=== PATIENT | male | born 1955 | race Caucasian/White ===

== ENCOUNTER 2021-04-17 08:58 | Observation (INO) | payer MEDICARE, OTHER ==
[~2021-04-17] VITALS: Ht 167.6 cm; Wt 88.0 kg
[~2021-04-17 08:58] MED LIST: CYAN1TAB19 PO; METH29OI TP; OXYC1TAB15 PO; TRAZ-118 PO
--- NOTE | 2021-04-17 09:19 | ED.ADGEN ---
Past Medical History Past Medical History: GERD, Other Additional Past Medical Histor: NEUROPATHY Past Surgical History: No Surgical History Smoking Status: Former Smoker Alcohol Use: None Drug Use: None General Adult EDM: Chief Complaint: CHEST WALL PAIN HPI: HPI: Patient is a 65-year-old male who arrives ambulatory to the emergency department complaining of right-sided chest pain since yesterday evening. Patient sharp pain at the right chest wall which began yesterday evening. Patient states this pain is exacerbated by deep breathing. Patient reports in order to temporize the pain he takes shorter breaths. Despite this the patient denies any history of fever or shortness of air. Additionally he denies any history of trauma or substernal chest pain. Patient also reports to right-sided testicular swelling and pain. Patient states this has been ongoing intermittently for 6 months. Patient states when he is at rest he does not have pain. He does notice however that this started in his lower abdomen/pelvic area of the right side and has now migrated into his right testicle. He denies fever or trauma. He further denies any discharge or changes in his bowel/bladder habits. He is awake, alert and nontoxic-appearing. Review of Systems: Review of Systems: Constitutional: Denies fever or chills. [] Eyes: Denies change in visual acuity. [] HENT: Denies nasal congestion or sore throat. [] Respiratory: Reports chest wall pain. Denies cough or shortness of breath. [] Cardiovascular: Denies chest pain or edema. [] GI: Denies abdominal pain, nausea, vomiting, bloody stools or diarrhea. [] : Reports right-sided testicular swelling and pain. Denies dysuria. [] Musculoskeletal: Denies back pain or joint pain. [] Integument: Denies rash. [] Neurologic: Denies headache, focal weakness or sensory changes. [] Endocrine: Denies polyuria or polydipsia. [] Lymphatic: Denies swollen glands. [] Psychiatric: Denies depression or anxiety. [] Allergies: Allergies: Allergies Coded Allergies Type Severity Reaction Last Updated Verified No Known Drug Allergies 01/02/16 No Physical Exam: PE: Constitutional: Well developed, well nourished, no acute distress, non-toxic appearance. [] HENT: Normocephalic, atraumatic, bilateral external ears normal, oropharynx moist, no oral exudates, nose normal. [] Eyes: PERRLA, EOMI, conjunctiva normal, no discharge. [] Neck: Normal range of motion, no tenderness, supple, no stridor. [] Cardiovascular:Heart rate regular rhythm, no murmur [] Lungs & Thorax: Bilateral breath sounds clear to auscultation [] Abdomen: Bowel sounds normal, soft, no tenderness, no masses, no pulsatile masses. [] : Patient has mild erythema of the right testicle as well as fullness. There is no tenderness to palpation. There is no penile discharge or lesion otherwise. Skin: Warm, dry, no erythema, no rash. [] Back: No tenderness, no CVA tenderness. [] Extremities: No tenderness, no cyanosis, no clubbing, ROM intact, no edema. [] Neurologic: Alert and oriented X 3, normal motor function, normal sensory function, no focal deficits noted. [] Psychologic: Affect normal, judgement normal, mood normal. [] Current Patient Data: Labs: Laboratory Tests Test 04/17/21 09:17 White Blood Count 6.8 x10^3/uL (4.0-11.0) Red Blood Count 4.88 x10^6/uL (4.30-5.70) Hemoglobin 15.3 g/dL (13.0-17.5) Hematocrit 45.5 % (39.0-53.0) Mean Corpuscular Volume 93 fL (79-100) Mean Corpuscular Hemoglobin 31 pg (25-35) Mean Corpuscular Hemoglobin Concent 34 g/dL (31-37) Red Cell Distribution Width 15.1 % (11.5-14.5) H Platelet Count 197 x10^3/uL (140-400) Neutrophils (%) (Auto) 71 % (31-73) Lymphocytes (%) (Auto) 21 % (24-48) L Monocytes (%) (Auto) 5 % (0-9) Eosinophils (%) (Auto) 3 % (0-3) Basophils (%) (Auto) 1 % (0-3) Neutrophils # (Auto) 4.8 x10^3/uL (1.8-7.7) Lymphocytes # (Auto) 1.4 x10^3/uL (1.0-4.8) Monocytes # (Auto) 0.3 x10^3/uL (0.0-1.1) Eosinophils # (Auto) 0.2 x10^3/uL (0.0-0.7) Basophils # (Auto) 0.1 x10^3/uL (0.0-0.2) Sodium Level 142 mmol/L (136-145) Potassium Level 4.2 mmol/L (3.5-5.1) Chloride Level 107 mmol/L (98-107) Carbon Dioxide Level 26 mmol/L (21-32) Anion Gap 9 (6-14) Blood Urea Nitrogen 17 mg/dL (8-26) Creatinine 1.3 mg/dL (0.7-1.3) Estimated GFR (Cockcroft-Gault) 55.2 BUN/Creatinine Ratio 13 (6-20) Glucose Level 96 mg/dL (70-99) Calcium Level 8.7 mg/dL (8.5-10.1) Total Bilirubin 0.5 mg/dL (0.2-1.0) Aspartate Amino Transferase (AST) 18 U/L (15-37) Alanine Aminotransferase (ALT) 31 U/L (16-63) Alkaline Phosphatase 61 U/L (46-116) Troponin I Quantitative < 0.017 ng/mL (0.000-0.055) EI-Txn-E-Type Natriuretic Peptide 71 pg/mL (0-124) Total Protein 7.9 g/dL (6.4-8.2) Albumin 3.9 g/dL (3.4-5.0) Albumin/Globulin Ratio 1.0 (1.0-1.7) Laboratory Tests 04/17/21 09:17 Laboratory Tests 04/17/21 09:17 Vital Signs: Vital Signs Date Time Temp Pulse Resp B/P (MAP) Pulse Ox O2 Delivery O2 Flow Rate FiO2 04/17/21 09:00 98.0 93 20 167/107 (127) 97 Room Air 98.0 EKG: EKG: [] EKG was obtained at 9:04 AM and revealed a normal sinus rhythm with a ventricular rate of 88 bpm. There are no acute ST/T wave changes to denote ischemia. This is an otherwise normal EKG. Heart Score: C/O Chest Pain: Yes HEART Score for Chest Pain: HEART Score for Chest Pain Response (Comments) Value History Slighlty/Non-Suspicious 0 ECG Normal 0 Age > 65 2 Risk Factors 1 or 2 Risk Factors 1 Troponin < Normal Limit 0 Total 3 Risk Factors: Risk Factors: DM, Current or recent (<one month) smoker, HTN, HLP, family history of CAD, obesity. Risk Scores: Score 0 - 3: 2.5% MACE over next 6 weeks - Discharge Home Score 4 - 6: 20.3% MACE over next 6 weeks - Admit for Clinical Observation Score 7 - 10: 72.7% MACE over next 6 weeks - Early Invasive Strategies Radiology/Procedures: Radiology/Procedures: [] Impression: [facility] [id number] [place] [address] IMAGING REPORT Signed PATIENT: CARLA SANTOS ACCOUNT: [id number] : 1955 LOCATION: ER AGE: 65 SEX: M EXAM STATUS: REG ER ORD. PHYSICIAN: SHAWN FRAGA DO REASON: PAIN PROCEDURE: PORTABLE CHEST 1V XR CHEST 1V 04/17/2021 9:15 AM INDICATION: Pain COMPARISON: 01/02/2016 TECHNIQUE: Portable frontal view of the chest is provided. FINDINGS: The cardiomediastinal silhouette is within normal limits. There is elevation left hemidiaphragm. Bandlike density at the left lung base may represent atelectasis versus developing infiltrate. Calcified granuloma identified in the right midlung. There are no significant pleural effusions. There is no pulmonary vascular congestion. No pneumothorax. No suspicious osseous abnormality. IMPRESSION: There is new elevation left hemidiaphragm. There is bandlike density at the left lung base may represent atelectasis versus infiltrate. Electronically signed by: Colt Lawler MD (04/17/2021 9:36 AM) [id number] DICTATED and SIGNED BY: COLT LAWLER MD DATE: 04/17/21 [id number] [facility] [address] [place] [address] IMAGING REPORT Signed PATIENT: CARLA SANTOS ACCOUNT: [id number] : 1955 LOCATION: ER AGE: 65 SEX: M EXAM STATUS: REG ER ORD. PHYSICIAN: SHAWN FRAGA DO REASON: RIGHT SIDED SWELLING/PAIN PROCEDURE: TESTICULAR/SCROTUM INDICATION: Reason: RIGHT SIDED SWELLING/PAIN / Spl. Instructions: / History: COMPARISON: CT from February 2016 TECHNIQUE: Grayscale, color and spectral doppler ultrasound images obtained of the scrotum. FINDINGS: Right Testicle: 40 x 30 x 24 mm. Vascular flow is identified. Left Testicle: 40 x 23 x 27 mm. Vascular flow is identified. Moderate right-sided hydrocele. Small amount of debris within. Loop of bowel is seen within the right groin abutting the hydrocele IMPRESSION: * Loop of bowel seen extending superior to the right side of the scrotum which could be secondary to hernia containing bowel. * Moderate right-sided hydrocele with some debris within. Electronically signed by: Marleny Masterson MD (04/17/2021 10:31 AM) [id number] DICTATED and SIGNED BY: MARLENY MASTERSON MD DATE: 04/17/21 [id number] Course & Med Decision Making: Course & Med Decision Making Pertinent Labs and Imaging studies reviewed. (See chart for details) [] Dragon Disclaimer: Dragon Disclaimer: This electronic medical record was generated, in whole or in part, using a voice recognition dictation system. Departure Departure Impression: Primary Impression: Inguinal hernia of right side without obstruction or gangrene Additional Impression: Right-sided chest wall pain Disposition: ADMITTED INPATIENT Admitting Physician: HIMS Condition: STABLE Referrals: NO PCP (PCP) Problem Qualifiers SHAWN FRAGA DO Apr 17, 2021 09:19
--- NOTE | 2021-04-17 09:39 | RAD ---
XR CHEST 1V 04/17/2021 9:15 AM INDICATION: Pain COMPARISON: 01/02/2016 TECHNIQUE: Portable frontal view of the chest is provided. FINDINGS: The cardiomediastinal silhouette is within normal limits. There is elevation left hemidiaphragm. Band like density at the left lung base may represent atelectasis versus developing infiltrate. Calcified granuloma identified in the right midlung. There are no significant pleural effusions. There is no pulmonary vascular congestion. No pneumothora x. No suspicious osseous abnormality. IMPRESSION: There is new elevation left hemidiaphragm. There is bandlike density at the left lung base may repres ent atelectasis versus infiltrate. Electronically signed by: Andree Tang MD (04/17/2021 9:36 AM) [id number]
[2021-04-17 09:41] LABS: BASO # 0.1 x10^3/uL (0.0-0.2); BASO % 1 % (0-3); EOS # 0.2 x10^3/uL (0.0-0.7); EOS % 3 % (0-3); HEMATOCRIT 45.5 % (39.0-53.0); HEMOGLOBIN 15.3 g/dL (13.0-17.5); LYMPH # 1.4 x10^3/uL (1.0-4.8); LYMPH % 21 % (24-48); MEAN CORPUSCULAR HEMOGLOBIN 31 pg (25-35); MEAN CORPUSCULAR HGB CONC 34 g/dL (31-37); MEAN CORPUSCULAR VOLUME 93 fL (79-100); MONO # 0.3 x10^3/uL (0.0-1.1); MONO % 5 % (0-9); NEUT # 4.8 x10^3/uL (1.8-7.7); NEUT % 71 % (31-73); PLATELET COUNT 197 x10^3/uL (140-400); RED BLOOD COUNT 4.88 x10^6/uL (4.30-5.70); RED CELL DISTRIBUTION WIDTH 15.1 % (11.5-14.5); WHITE BLOOD COUNT 6.8 x10^3/uL (4.0-11.0)
[2021-04-17 10:02] LABS: CALCIUM 8.7 mg/dL (8.5-10.1); CREATININE 1.3 mg/dL (0.7-1.3); GFR 55.2; POTASSIUM 4.2 mmol/L (3.5-5.1)
[2021-04-17 10:08] LABS: ALBUMIN 3.9 g/dL (3.4-5.0); TOTAL BILIRUBIN 0.5 mg/dL (0.2-1.0); TOTAL PROTEIN 7.9 g/dL (6.4-8.2)
--- NOTE | 2021-04-17 10:33 | RAD ---
INDICATION: Reason: RIGHT SIDED SWELLING/PAIN / Spl. Instructions: / History: COMPARISON: CT from February 2016 TECHNIQUE: Grayscale, color and spectral doppler ultrasound images obtained of the scrotum. FINDINGS: Right Testicle: 40 x 30 x 24 mm. Vascular flow is identified. Left Testicle: 40 x 23 x 27 mm. Vascular flow is identified. Moderate right-sided hydrocele. Small amount of debris within. Loop of bowel is seen within the right groin abutting the hydrocele IMPRESSION: * Loop of bowel seen extending superior to the right side of the scrotum which could be secondary to hernia containing bowel. * Moderate right-sided hydrocele with some debris within. Electronically signed by: Oneal Andrews MD (04/17/2021 10:31 AM) [id number]
--- NOTE | 2021-04-17 10:53 | PDOC1 ---
History and Physical Date of Admission Date of Admission DATE: 04/17/21 TIME: 10:52 History of Present Illness History of Present Illness 65-year-old male who arrived ambulatory to the emergency department complaining of right-sided chest pain since 04-16 evening. Patient sharp pain at the right chest wall which is reproducable Patient states this pain is exacerbated by deep breathing. denies any history of fever or shortness of air. he quit smoking 6 yrs ago he denies any history of trauma or substernal chest pain. Patient also reports to right-sided testicular swelling and pain. Patient states this has been ongoing intermittently for 6 months. Patient states when he is at rest he does not have pain. He does notice however that this started in his lower abdomen/pelvic area of the right side and has now migrated into his right testicle./ scrotum on US //Loop of bowel seen extending superior to the right side of the scrotum containing bowel.Moderate right-sided hydrocele with some debris within. Past Medical History Past Medical History Past Medical History Past Medical History: GERD, Other Additional Past Medical Histor: NEUROPATHY Past Surgical History: No Surgical History Smoking Status: Former Smoker Alcohol Use: None Drug Use: None FAMILY HISTORY Family History noncontributory to CV SOCIAL HISTORY Smoke: No ALCOHOL: occassional Drugs: Other (hx of marijuana an cocaine use) Lives: with Family (spouse) Psych: Addictions Musculoskeletal: Osteoarthritis Rheumatologic: Fibromyalgia Family History Family History: High Cholestrol, Obesity Social History Smoke: Quit ALCOHOL: occassional Drugs: Cocaine, Marijuana Current Problem List Problem List Problems Medical Problems: (1) Inguinal hernia of right side without obstruction or gangrene Status: Acute (2) Right-sided chest wall pain Status: Acute Current Medications Current Medications Active Scripts Active Percocet 5-325 Mg Tablet (Oxycodone/Acetaminophen) 1 Each Tablet 1 Tab PO QID PRN Trazodone Hcl 50 Mg Tablet 50 Mg PO PRN QHS PRN Analgesic [place] (Methyl Salicylate/Menthol) 29 Gm Oint...g. 1 Marco Antonio TP QID Folbic Tablet (Cyanocobalamin/Fa/Pyridoxine) 1 Each Tablet 1 Tab PO DAILY Reported No Known Medications Prior To Admisstion (Info) Each 1 Each MC Allergies Allergies: Coded Allergies: No Known Drug Allergies (Unverified , 2/17/16) ROS General: No: Chills, Night Sweats, Fatigue, Malaise, Appetite, Other PSYCHOLOGICAL ROS: YES: Anxiety, Depression; No: Behavioral Disorder, Concentration difficultie, Decreased libido, Disorientation, Hallucinations, Hostility, Irritablity, Memory difficulties, Mood Swings, Obsessive thoughts, Physical abuse, Sexual abuse, Sleep disturbances, Suicidal ideation, Other Eyes: No Blurry vision, No Decreased vision, No Double vision, No Dry eyes, No Excessive tearing, No Eye Pain, No Itchy Eyes, No Loss of vision, No Photophobia, No Scotomata, No Uses contacts, No Uses glasses, No Other HEENT: YES: Heacaches; No: Visual Changes, Hearing change, Nasal congestion, Nasal discharge, Oral lesions, Sinus pain, Sore Throat, Epistaxis, Sneezing, Snoring, Tinnitus, Vertigo, Vocal changes, Other ALLERGY AND IMMUNOLOGY: No: Hives, Insect Bite Sensitivity, Itchy/Watery Eyes, Nasal Congestion, Post Nasal Drip, Seasonal Allergies, Other Hematological and Lymphatic: No: Bleeding Problems, Blood Clots, Blood Transfusions, Brusing, Night Sweats, Pallor, Swollen Lymph Nodes, Other ENDOCRINE: No: Breast Changes, Galactorrhea, Hair Pattern Changes, Hot Flashes, Malaise/lethargy, Mood Swings, Palpitations, Polydipsia/polyuria, Skin Changes, Temperature Intolerance, Unexpected Weight Changes, Other Breast: No New/Changing Breast Lumps, No Nipple changes, No Nipple discharge, No Other Respiratory: No: Cough, Hemoptysis, Orthopnea, Pleuritic Pain, Shortness of breath, SOB with excertion, Sputum Changes, Stridor, Tachypnea, Wheezing, Other Cardiovascular: yes Chest Pain; No Palpitations, No Orthopnea, No Paroxysmal Noc. Dyspnea, No Edema, No Lt Headedness, No Other Gastrointestinal: Yes Abdominal Pain; No Nausea, No Vomiting, No Diarrhea, No Constipation, No Melena, No Hematochezia, No Other Genitourinary: No Dysuria, No Frequency, No Incontinence, No Hematuria, No Retention, No Discharge, No Urgency, No Pain, No Flank Pain, No Other, No , No , No , No , No , No , No Musculoskeletal: No Gait Disturbance, No Joint Pain, No Joint Stiffness, No Joint Swelling, No Muscle Pain, No Muscular Weakness, No Pain In:, No Swelling In:, No Other Neurological: No Behavorial Changes, No Bowel/Bladder ControlChng, No Confusion, No Dizziness, No Gait Disturbance, No Headaches, No Impaired Coord/balance, No Memory Loss, No Numbness/Tingling, No Seizures, No Speech Problems, No Tremors, No Visual Changes, No Weakness, No Other Skin: No Dry Skin, No Eczema, No Hair Changes, No Lumps, No Mole Changes, No Mottling, No Nail Changes, No Pruritus, No Rash, No Skin Lesion Changes, No Other, No Acne Physical Exam General: Alert, Oriented X3, Cooperative, No acute distress HEENT: PERRLA, EOMI, Mucous membr. moist/pink Lungs: Clear to auscultation, Normal air movement Heart: S1S2, RRR, no gallops, no murmurs Abdomen: Normal bowel sounds, No tenderness PELVIC: Examination not indicated Extremities: No cyanosis Neuro: Normal speech, Strength at 5/5 X4 ext, Cranial nerves 3-12 NL Psych/Mental Status: Mental status NL, Mood NL Vitals Vitals Vital Signs Date Time Temp Pulse Resp B/P (MAP) Pulse Ox O2 Delivery O2 Flow Rate FiO2 04/17/21 09:00 98.0 93 20 167/107 (127) 97 Room Air 98.0 Labs Labs Laboratory Tests Test 04/17/21 09:17 White Blood Count 6.8 x10^3/uL (4.0-11.0) Red Blood Count 4.88 x10^6/uL (4.30-5.70) Hemoglobin 15.3 g/dL (13.0-17.5) Hematocrit 45.5 % (39.0-53.0) Mean Corpuscular Volume 93 fL (79-100) Mean Corpuscular Hemoglobin 31 pg (25-35) Mean Corpuscular Hemoglobin Concent 34 g/dL (31-37) Red Cell Distribution Width 15.1 % (11.5-14.5) Platelet Count 197 x10^3/uL (140-400) Neutrophils (%) (Auto) 71 % (31-73) Lymphocytes (%) (Auto) 21 % (24-48) Monocytes (%) (Auto) 5 % (0-9) Eosinophils (%) (Auto) 3 % (0-3) Basophils (%) (Auto) 1 % (0-3) Neutrophils # (Auto) 4.8 x10^3/uL (1.8-7.7) Lymphocytes # (Auto) 1.4 x10^3/uL (1.0-4.8) Monocytes # (Auto) 0.3 x10^3/uL (0.0-1.1) Eosinophils # (Auto) 0.2 x10^3/uL (0.0-0.7) Basophils # (Auto) 0.1 x10^3/uL (0.0-0.2) Sodium Level 142 mmol/L (136-145) Potassium Level 4.2 mmol/L (3.5-5.1) Chloride Level 107 mmol/L (98-107) Carbon Dioxide Level 26 mmol/L (21-32) Anion Gap 9 (6-14) Blood Urea Nitrogen 17 mg/dL (8-26) Creatinine 1.3 mg/dL (0.7-1.3) Estimated GFR (Cockcroft-Gault) 55.2 BUN/Creatinine Ratio 13 (6-20) Glucose Level 96 mg/dL (70-99) Calcium Level 8.7 mg/dL (8.5-10.1) Total Bilirubin 0.5 mg/dL (0.2-1.0) Aspartate Amino Transf (AST/SGOT) 18 U/L (15-37) Alanine Aminotransferase (ALT/SGPT) 31 U/L (16-63) Alkaline Phosphatase 61 U/L (46-116) Troponin I Quantitative < 0.017 ng/mL (0.000-0.055) QQ-Jor-U-Type Natriuretic Peptide 71 pg/mL (0-124) Total Protein 7.9 g/dL (6.4-8.2) Albumin 3.9 g/dL (3.4-5.0) Albumin/Globulin Ratio 1.0 (1.0-1.7) Laboratory Tests Test 04/17/21 09:17 White Blood Count 6.8 x10^3/uL (4.0-11.0) Red Blood Count 4.88 x10^6/uL (4.30-5.70) Hemoglobin 15.3 g/dL (13.0-17.5) Hematocrit 45.5 % (39.0-53.0) Mean Corpuscular Volume 93 fL (79-100) Mean Corpuscular Hemoglobin 31 pg (25-35) Mean Corpuscular Hemoglobin Concent 34 g/dL (31-37) Red Cell Distribution Width 15.1 % (11.5-14.5) Platelet Count 197 x10^3/uL (140-400) Neutrophils (%) (Auto) 71 % (31-73) Lymphocytes (%) (Auto) 21 % (24-48) Monocytes (%) (Auto) 5 % (0-9) Eosinophils (%) (Auto) 3 % (0-3) Basophils (%) (Auto) 1 % (0-3) Neutrophils # (Auto) 4.8 x10^3/uL (1.8-7.7) Lymphocytes # (Auto) 1.4 x10^3/uL (1.0-4.8) Monocytes # (Auto) 0.3 x10^3/uL (0.0-1.1) Eosinophils # (Auto) 0.2 x10^3/uL (0.0-0.7) Basophils # (Auto) 0.1 x10^3/uL (0.0-0.2) Sodium Level 142 mmol/L (136-145) Potassium Level 4.2 mmol/L (3.5-5.1) Chloride Level 107 mmol/L (98-107) Carbon Dioxide Level 26 mmol/L (21-32) Anion Gap 9 (6-14) Blood Urea Nitrogen 17 mg/dL (8-26) Creatinine 1.3 mg/dL (0.7-1.3) Estimated GFR (Cockcroft-Gault) 55.2 BUN/Creatinine Ratio 13 (6-20) Glucose Level 96 mg/dL (70-99) Calcium Level 8.7 mg/dL (8.5-10.1) Total Bilirubin 0.5 mg/dL (0.2-1.0) Aspartate Amino Transf (AST/SGOT) 18 U/L (15-37) Alanine Aminotransferase (ALT/SGPT) 31 U/L (16-63) Alkaline Phosphatase 61 U/L (46-116) Troponin I Quantitative < 0.017 ng/mL (0.000-0.055) GT-Jue-D-Type Natriuretic Peptide 71 pg/mL (0-124) Total Protein 7.9 g/dL (6.4-8.2) Albumin 3.9 g/dL (3.4-5.0) Albumin/Globulin Ratio 1.0 (1.0-1.7) Images Images XR CHEST 1V 04/17/2021 9:15 AM INDICATION: Pain COMPARISON: 01/02/2016 TECHNIQUE: Portable frontal view of the chest is provided. FINDINGS: The cardiomediastinal silhouette is within normal limits. There is elevation left hemidiaphragm. Bandlike density at the left lung base may represent atelectasis versus developing infiltrate. Calcified granuloma identified in the right midlung. There are no significant pleural effusions. There is no pulmonary vascular congestion. No pneumothorax. No suspicious osseous abnormality. IMPRESSION: There is new elevation left hemidiaphragm. There is bandlike density at the left lung base may represent atelectasis versus infiltrate. Electronically signed by: Colt Lawler MD (04/17/2021 9:36 AM) [id number] DICTATED and SIGNED BY: COLT LAWLER MD DATE: 04/17/21 [id number] PATIENT: CARLA SANTOS ACCOUNT: [id number] : 1955 LOCATION: ER AGE: 65 SEX: M EXAM STATUS: REG ER ORD. PHYSICIAN: SHAWN FRAAG DO REASON: RIGHT SIDED SWELLING/PAIN PROCEDURE: TESTICULAR/SCROTUM INDICATION: Reason: RIGHT SIDED SWELLING/PAIN / Spl. Instructions: / History: COMPARISON: CT from February 2016 TECHNIQUE: Grayscale, color and spectral doppler ultrasound images obtained of the scrotum. FINDINGS: Right Testicle: 40 x 30 x 24 mm. Vascular flow is identified. Left Testicle: 40 x 23 x 27 mm. Vascular flow is identified. Moderate right-sided hydrocele. Small amount of debris within. Loop of bowel is seen within the right groin abutting the hydrocele IMPRESSION: * Loop of bowel seen extending superior to the right side of the scrotum which could be secondary to hernia containing bowel. * Moderate right-sided hydrocele with some debris within. Electronically signed by: Marleny Masterson MD (04/17/2021 10:31 AM) [id number] DICTATED and SIGNED BY: MARLENY MASTERSON MD DATE: 04/17/21 [id number] 0 VTE Prophylaxis Ordered VTE Prophylaxis Devices: No VTE Pharmacological Prophylaxi: No Assessment/Plan Assessment/Plan IMPRESSION Atypical right chest wall pain inguinal hernia // Loop of bowel seen extending superior to the right side of the scrotum containing bowel. Moderate right-sided hydrocele with some debris within. morbid obesity hx polysubstance abuse, cocaine REMOTE tobacco abuse new elevation left hemidiaphragm. cxr bandlike density at the left lung base may represent atelectasis versus infiltrate. plan admit consult cardiology consult general surgery trend troponin i incentive spirometry dvt prophylaxis D/W ER DR Justifications for Admission Other Justification TRE AMADO MD Apr 17, 2021 10:53
[2021-04-17] MEDS ORDERED: MORPHINE SULFATE 2 MG/ML VIAL. IV PRN (11:00)
[2021-04-17] MEDS ORDERED: ONDANSETRON PF 4 MG/2 ML VIAL. IV PRN ×2 (11:00→15:30)
[2021-04-17 15:00] VITALS: BP 156/107
[2021-04-17] MEDS ORDERED: NAPR220C4 PO (15:19)
[2021-04-17] MEDS ORDERED: LORazepam 0.5 MG TABLET PO PRN (15:30)
[2021-04-17] MEDS ORDERED: ALBUTEROL SULFATE 2.5 MG/3 ML NEBU. NEB PRN (15:30)
[2021-04-17] MEDS ORDERED: SODIUM PHOSPHATES 19/7GM 133 ML ENEMA. PR PRN (15:30)
[2021-04-17] MEDS ORDERED: diphenhydrAMINE 50 MG/ML VIAL IVP PRN (15:30)
[2021-04-17] MEDS ORDERED: ACETAMINOPHEN 325 MG TABLET. PO PRN (15:30)
[2021-04-17] MEDS ORDERED: guaiFENesin ORAL 200 MG/10 ML LIQUID. PO PRN (15:30)
[2021-04-17] MEDS ORDERED: ZOLPIDEM 5 MG TABLET. PO PRN (15:30)
[2021-04-17] MEDS ORDERED: cloNIDine HCL 0.1 MG TABLET PO PRN (15:30)
[2021-04-17] MEDS ORDERED: DOCUSATE SODIUM 100 MG CAPSULE. PO PRN (15:30)
[2021-04-17] MEDS ORDERED: 0.9 % SODIUM CHLORIDE 10 ML DISP.SYRIN. IV PRN (15:30)
[2021-04-17] MEDS ORDERED: ENOXAPARIN 40 MG/0.4 ML SYRINGE. SQ SCH (16:00)
--- NOTE | 2021-04-17 16:22 | PDOC2 ---
PROSPER MILLER CONSTITUTIONAL LAW PROFESSOR 04/17/21 1622: CARDIAC CONSULT DATE OF CONSULT Date of Consult DATE: 04/17/21 TIME: 16:14 REASON FOR CONSULT Reason for Consult: chest pain REFERRING PHYSICIAN Referring Physician: Fullbright SOURCE Source: Chart review, Patient HISTORY OF PRESENT ILLNESS HISTORY OF PRESENT ILLNESS This is a pleasant 65 yo male admitted for complains of chest pain and right scrotal pain. Reports that he started having scrotal pain 6 months ago but did not go to any physician. No fever or chills. No issues with his bowel. Denies any significant straining, heavy lifting, no recent falls or injury. His chest pain is right sided and feels sharp particularly when deep breathing and hurts as well with certain right arm motion. He also has RA that he does not have treatment with. Also complains of right wrist pain particularly with pronation. Otherwise no prior hx of CAD, VTE or arrhythmias. He has never been told that he has DM, HTN or HLP. PAST MEDICAL HISTORY Past Medical History No pertinent history PAST SURGICAL HISTORY Past Surgical History: Other (nasal surgery) FAMILY HISTORY Family History noncontributory to CV SOCIAL HISTORY Smoke: No ALCOHOL: occassional Drugs: Other (hx of marijuana an cocaine use) Lives: with Family (spouse) ALLERGIES ALLERGIES: Coded Allergies: No Known Drug Allergies (Unverified , 01/02/16) ROS Review of System 14 point ROS evaluated with pertinent positives noted per HPI PHYSICAL EXAM General: Alert, Oriented X3, Cooperative, No acute distress HEENT: Atraumatic, Mucous membr. moist/pink Lungs: Other (basilar crackles) Heart: Regular rate (SR), Normal S1, Normal S2, No murmurs Abdomen: Soft, No tenderness, Other (prtuberant abd) Extremities: No cyanosis, No edema Skin: No breakdown, No significant lesion Neuro: Normal speech, Sensation intact Psych/Mental Status: Mental status NL, Mood NL MUSCULOSKELETAL: Osteoarthritic changes both hands, Other (swan like deformity to both hands) VITALS/I&O VITALS/I&O: Vital Signs Date Time Temp Pulse Resp B/P (MAP) Pulse Ox O2 Delivery O2 Flow Rate FiO2 04/17/21 15:00 98.9 92 18 156/107 (123) 91 Room Air 98.9 LABS Lab: Laboratory Tests Test 04/17/21 09:17 04/17/21 13:15 White Blood Count 6.8 x10^3/uL (4.0-11.0) Red Blood Count 4.88 x10^6/uL (4.30-5.70) Hemoglobin 15.3 g/dL (13.0-17.5) Hematocrit 45.5 % (39.0-53.0) Mean Corpuscular Volume 93 fL (79-100) Mean Corpuscular Hemoglobin 31 pg (25-35) Mean Corpuscular Hemoglobin Concent 34 g/dL (31-37) Red Cell Distribution Width 15.1 % (11.5-14.5) H Platelet Count 197 x10^3/uL (140-400) Neutrophils (%) (Auto) 71 % (31-73) Lymphocytes (%) (Auto) 21 % (24-48) L Monocytes (%) (Auto) 5 % (0-9) Eosinophils (%) (Auto) 3 % (0-3) Basophils (%) (Auto) 1 % (0-3) Neutrophils # (Auto) 4.8 x10^3/uL (1.8-7.7) Lymphocytes # (Auto) 1.4 x10^3/uL (1.0-4.8) Monocytes # (Auto) 0.3 x10^3/uL (0.0-1.1) Eosinophils # (Auto) 0.2 x10^3/uL (0.0-0.7) Basophils # (Auto) 0.1 x10^3/uL (0.0-0.2) Sodium Level 142 mmol/L (136-145) Potassium Level 4.2 mmol/L (3.5-5.1) Chloride Level 107 mmol/L (98-107) Carbon Dioxide Level 26 mmol/L (21-32) Anion Gap 9 (6-14) Blood Urea Nitrogen 17 mg/dL (8-26) Creatinine 1.3 mg/dL (0.7-1.3) Estimated GFR (Cockcroft-Gault) 55.2 BUN/Creatinine Ratio 13 (6-20) Glucose Level 96 mg/dL (70-99) Calcium Level 8.7 mg/dL (8.5-10.1) Total Bilirubin 0.5 mg/dL (0.2-1.0) Aspartate Amino Transferase (AST) 18 U/L (15-37) Alanine Aminotransferase (ALT) 31 U/L (16-63) Alkaline Phosphatase 61 U/L (46-116) Troponin I Quantitative < 0.017 ng/mL (0.000-0.055) < 0.017 ng/mL (0.000-0.055) KC-Yfw-W-Type Natriuretic Peptide 71 pg/mL (0-124) Total Protein 7.9 g/dL (6.4-8.2) Albumin 3.9 g/dL (3.4-5.0) Albumin/Globulin Ratio 1.0 (1.0-1.7) Laboratory Tests 04/17/21 09:17 Laboratory Tests 04/17/21 09:17 ASSESSMENT/PLAN ASSESSMENT/PLAN 1. Atypical chest pain: suspect MSK 2. Right inguinal hernia with bowel noted to right scrotum 3. Hx of substance abuse: marijuana and cocaine: Denies 4. HTN: borderline high, unknown baseline 5. Suspect RA: no meds Recommendations 1. GS consult pending. Low risk for perioperative CV events for noncardiac surgery 2. Monitor BP, Norvasc x1 3. Start IS, discussed with RN RIVKA MCKEON MD 04/17/21 1708: CARDIAC CONSULT ASSESSMENT/PLAN ASSESSMENT/PLAN Patient seen and evaluated. I agree with our nurse practitioners assessment and plan. Chest pain. Atypical. Will trend troponin. Check echo. Right inguinal hernia with bowel noted to right scrotum. Surgical consult pending. Hx of substance abuse: marijuana and cocaine: Denies recent use HTN: borderline. Continue to monitor. Suspect RA: no meds PROSPER MILLER APRN Apr 17, 2021 16:22 RIVKA MCKEON MD Apr 17, 2021 17:08
--- NOTE | 2021-04-17 17:24 | EKG ---
[facility] [address] [place] [address] Test Date: 2021-04-17 Test Time: 09:04:07 Pat Name: TWAN SANTOS Department: Room: Gender: C4 Planner: : 1955 Requested By: SHAWN FRAGA Order Number: [id number] Reading MD: Measurements Intervals [place] Rate: 88 P: 48 MO: 176 QRS: 11 QRSD: 76 T: 49 QT: 328 QTc: 400 Interpretive Statements SINUS RHYTHM NORMAL ECG RI6.02 No previous ECG available for comparison
[2021-04-17 19:00] VITALS: BP 148/88
[2021-04-17 23:17] VITALS: BP 154/96
[2021-04-18 03:15] VITALS: BP 154/96
[2021-04-18 07:30] VITALS: BP 149/97
--- NOTE | 2021-04-18 09:48 | PDOC2 ---
LOWELL MARES CORPORATE PLANNER 04/18/21 0948: CONSULT Date of Consult Date of Consult DATE: 04/18/21 TIME: 09:45 Reason for Consult Reason for Consult: inguinal hernia Referring Physician Referring Physician: ER Identification/Chief Complaint Chief Complaint chest pain Source Source: Chart review, Patient History of Present Illness Reason for Visit: admitted with chest pain reports testicular swelling, pain intermittently x at least 6 months urinating well bowels functioning , no n/v Past Medical History Cardiovascular: HTN GI: GERD Psych: Addictions Musculoskeletal: Osteoarthritis Rheumatologic: Fibromyalgia Past Surgical History Past Surgical History: Other (nasal surgery) Family History Family History: High Cholestrol, Obesity Social History Quit ALCOHOL: occassional Drugs: Other (hx of marijuana an cocaine use) Lives: with Family (spouse) Current Problem List Problem List Problems Medical Problems: (1) Inguinal hernia of right side without obstruction or gangrene Status: Acute (2) Right-sided chest wall pain Status: Acute Current Medications Current Medications Current Medications Ondansetron HCl (Zofran) 4 mg PRN Q8HRS PRN IV NAUSEA/VOMITING; Start 04/17/21 at 11:00; Stop 04/18/21 at 10:59 Morphine Sulfate (Morphine Sulfate) 2 mg PRN Q2HR PRN IV PAIN; Start 04/17/21 at 11:00; Stop 04/18/21 at 10:59 Sodium Chloride (Normal Saline Flush) 3 ml QSHIFT PRN IV AFTER MEDS AND BLOOD DRAWS; Start 04/17/21 at 15:30 Ondansetron HCl (Zofran) 4 mg PRN Q4HRS PRN IV NAUSEA/VOMITING; Start 04/17/21 at 15:30 Zolpidem Tartrate (Ambien) 5 mg PRN QHS PRN PO INSOMNIA; Start 04/17/21 at 15:30 Acetaminophen (Tylenol) 650 mg PRN Q4HRS PRN PO TEMP OVER 100.4F OR MILD PAIN Last administered on 04/17/21at 20:34; Start 04/17/21 at 15:30 Clonidine HCl (Catapres) 0.1 mg PRN Q6HRS PRN PO SBP>160 OR DBP>90; Start 04/17/21 at 15:30 Sodium Monofluorophosphate (Fleet Adult) 133 ml PRN DAILY PRN VA CONSTIPATION; Start 04/17/21 at 15:30 Diphenhydramine HCl (Benadryl) 25 mg PRN Q4HRS PRN IVP ITCHING; Start 04/17/21 at 15:30 Docusate Sodium (Colace) 100 mg PRN BID PRN PO HARD STOOLS; Start 04/17/21 at 15:30 Albuterol Sulfate (Ventolin Neb Soln) 2.5 mg PRN Q4HRS PRN NEB SHORTNESS OF BREATH; Start 04/17/21 at 15:30 Guaifenesin (Robitussin) 200 mg PRN Q4HRS PRN PO COUGH Last administered on 04/17/21at 16:34; Start 04/17/21 at 15:30 Lorazepam (Ativan) 0.5 mg PRN Q4HRS PRN PO ANXIETY / AGITATION; Start 04/17/21 at 15:30 Enoxaparin Sodium (Lovenox 40mg Syringe) 40 mg Q24H SQ Last administered on 04/17/21at 16:29; Start 04/17/21 at 16:00 Amlodipine Besylate (Norvasc) 5 mg DAILY PO Last administered on 04/18/21at 09:24; Start 04/18/21 at 09:00 Active Scripts Active Reported Aleve (Naproxen Sodium) 220 Mg Capsule 220 Mg PO Q6HRS Allergies Allergies: Coded Allergies: No Known Drug Allergies (Unverified , 01/02/16) ROS General: No: Chills, Other (fevers ) PSYCHOLOGICAL ROS: No: Anxiety, Depression Eyes: No Blurry vision, No Double vision HEENT: No: Heacaches, Sore Throat Hematological and Lymphatic: No: Bleeding Problems, Blood Clots Respiratory: No: Cough, Shortness of breath Cardiovascular: yes Chest Pain; No Palpitations Gastrointestinal: Yes Other (see hpi) Genitourinary: No Dysuria, No Hematuria Musculoskeletal: No Joint Pain, No Muscle Pain Neurological: No Impaired Coord/balance, No Numbness/Tingling Skin: No Pruritus, No Rash Physical Exam Physical Exam RIH present on exam, mildly tender General: Alert, Oriented X3, Cooperative HEENT: Atraumatic, PERRLA Lungs: Clear to auscultation, Normal air movement Heart: Regular rate, Normal S1, Normal S2 Abdomen: Soft, No tenderness Extremities: No clubbing, No cyanosis, No edema Skin: No rashes, No breakdown Neuro: Normal gait, Normal speech Psych/Mental Status: Mental status NL, Mood NL MUSCULOSKELETAL: No deformity, No swelling Vitals VITALS Vital Signs Date Time Temp Pulse Resp B/P (MAP) Pulse Ox O2 Delivery O2 Flow Rate FiO2 04/18/21 09:24 82 149/97 04/18/21 07:30 98.4 18 95 Room Air 98.4 Labs Labs Laboratory Tests Test 04/17/21 09:17 04/17/21 13:15 White Blood Count 6.8 x10^3/uL (4.0-11.0) Red Blood Count 4.88 x10^6/uL (4.30-5.70) Hemoglobin 15.3 g/dL (13.0-17.5) Hematocrit 45.5 % (39.0-53.0) Mean Corpuscular Volume 93 fL (79-100) Mean Corpuscular Hemoglobin 31 pg (25-35) Mean Corpuscular Hemoglobin Concent 34 g/dL (31-37) Red Cell Distribution Width 15.1 % (11.5-14.5) Platelet Count 197 x10^3/uL (140-400) Neutrophils (%) (Auto) 71 % (31-73) Lymphocytes (%) (Auto) 21 % (24-48) Monocytes (%) (Auto) 5 % (0-9) Eosinophils (%) (Auto) 3 % (0-3) Basophils (%) (Auto) 1 % (0-3) Neutrophils # (Auto) 4.8 x10^3/uL (1.8-7.7) Lymphocytes # (Auto) 1.4 x10^3/uL (1.0-4.8) Monocytes # (Auto) 0.3 x10^3/uL (0.0-1.1) Eosinophils # (Auto) 0.2 x10^3/uL (0.0-0.7) Basophils # (Auto) 0.1 x10^3/uL (0.0-0.2) Sodium Level 142 mmol/L (136-145) Potassium Level 4.2 mmol/L (3.5-5.1) Chloride Level 107 mmol/L (98-107) Carbon Dioxide Level 26 mmol/L (21-32) Anion Gap 9 (6-14) Blood Urea Nitrogen 17 mg/dL (8-26) Creatinine 1.3 mg/dL (0.7-1.3) Estimated GFR (Cockcroft-Gault) 55.2 BUN/Creatinine Ratio 13 (6-20) Glucose Level 96 mg/dL (70-99) Calcium Level 8.7 mg/dL (8.5-10.1) Total Bilirubin 0.5 mg/dL (0.2-1.0) Aspartate Amino Transf (AST/SGOT) 18 U/L (15-37) Alanine Aminotransferase (ALT/SGPT) 31 U/L (16-63) Alkaline Phosphatase 61 U/L (46-116) Troponin I Quantitative < 0.017 ng/mL (0.000-0.055) < 0.017 ng/mL (0.000-0.055) JR-Rus-C-Type Natriuretic Peptide 71 pg/mL (0-124) Total Protein 7.9 g/dL (6.4-8.2) Albumin 3.9 g/dL (3.4-5.0) Albumin/Globulin Ratio 1.0 (1.0-1.7) Laboratory Tests Test 04/17/21 13:15 Troponin I Quantitative < 0.017 ng/mL (0.000-0.055) Assessment/Plan Assessment/Plan RIH will review with Dr Atwood on timing of repair SHANTELLE ATWOOD MD 04/18/21 1309: CONSULT Assessment/Plan Assessment/Plan Pt seen and examined. Agree with Ms. Mares's note Pt with 6 month history of RIH reducible and soft, mild TTP will plan elective repair and encouraged outpt f/u Thanks for consult! LOWELL MARES APRN Apr 18, 2021 09:48 SHANTELLE ATWOOD MD Apr 18, 2021 13:09
[2021-04-18] MEDS ORDERED: AMLO-186 PO (10:13)
--- NOTE | 2021-04-18 10:43 | NUR ---
SW following. Discussed with RN, pt from home, room air, cardiac diet. Discharge order for home with self care. Pt will follow up outpatient for the surgery. RN advised no SW needs.
[2021-04-18 11:43] VITALS: BP 151/99
--- NOTE | 2021-04-18 13:01 | PDOC ---
CARDIO Progress Notes Date and Time Date of Service 04/18/21 Time of Evaluation 1300 Subjective Subjective: No Chest Pain, No shortness of breath, No Palpitations, Other (lower abdomen pain with palpation ) Vitals Vitals Vital Signs Date Time Temp Pulse Resp B/P (MAP) Pulse Ox O2 Delivery O2 Flow Rate FiO2 04/18/21 11:43 98.4 84 18 151/99 (116) 93 Room Air 98.4 Weight Weight [ ] Input and Output Intake and Output Intake and Output 04/18/21 07:00 Intake Total 300 ml Output Total 750 ml Balance -450 ml Intake Oral 300 ml Output Urine Total 750 ml Laboratory Labs Laboratory Tests Test 04/17/21 13:15 Troponin I Quantitative < 0.017 ng/mL (0.000-0.055) Physical Exam HEENT: Neck Supple W Full Motion Chest: Symmetric LUNGS: Clear to Auscultation Heart: S1S2, RRR Abdomen: Soft N/T Extremities: No Edema Neurology: alert, oriented, follow commands Assessment Assessment 1. Atypical chest pain: suspect MSK. AMI ruled out 2. Right inguinal hernia with bowel noted to right scrotum. Follow GS recs 3. Hx of substance abuse: marijuana and cocaine: Denies 4. HTN: better controlled. continue Norvasc. Supportive care from a CV standpoint Justicifation of Admission Dx: Justifications for Admission: Justification of Admission Dx: Yes Comments: chest pain FREDO GODWIN APRN Apr 18, 2021 13:01
--- NOTE | 2021-04-18 13:39 | DS ---
DATE OF DISCHARGE: 04/18/2021 ADMISSION DIAGNOSES: Right inguinal hernia and atypical chest pain. DISCHARGE DIAGNOSES: Resolving atypical chest pain, chronic right inguinal hernia. CONSULTS: General Surgery, Cardiology. PROCEDURES: None. HOSPITAL COURSE: The patient is a pleasant middle-aged male who presented with right inguinal hernia and some chest pain. He was admitted. We consulted General Surgery and Cardiology. So far, his cardiac workup was negative. Because of atypical, I did speak with Dr. Nicole this morning. He does want to repair the inguinal hernia, but the patient needs to do it as an elective outpatient procedure. Clinically, he is doing great. I saw and examined him. We are going to discharge with close outpatient followup. DISPOSITION: Home. ACTIVITY: As tolerated. DIET: Low sodium. DISCHARGE MEDICATIONS: Please see the MRAD. OTHER MEDICATIONS: Amlodipine 5 mg p.o. every day and p.r.n. Naprosyn. Total time [address]: Chava TID: [id number]
--- NOTE | 2021-04-18 15:45 | NUR ---
Discharge Note: CARLA SANTOS [facility] Discharge instructions and discharge home medications reviewed with Patient and a copy given. All questions have been answered and understanding verbalized. The following instructions and handouts were given: Pt informed to follow up with a PCP and Dr. Atwood after discharge. Discontinued IV line and telemetry. Patient discharged to Home with Self-Care
[2021-04-18 15:46] VITALS: BP 146/99
== END 2021-04-18 15:50 | disposition home or self-care (01) ==
LOC: ER 08:58 → 6 SOUTH 10:45 → ER 13:35
PROVIDERS: ADMIT Family Medicine; ATTEND Family Medicine
DX: R07.89 Other chest pain (principal); K40.90 Unilateral inguinal hernia, without obstruction or gangrene, not specified as recurrent; N43.3 Hydrocele, unspecified; I10 Essential (primary) hypertension; M19.90 Unspecified osteoarthritis, unspecified site; M79.7 Fibromyalgia; K21.9 Gastro-esophageal reflux disease without esophagitis; F12.10 Cannabis abuse, uncomplicated; F14.10 Cocaine abuse, uncomplicated; Z87.891 Personal history of nicotine dependence; Z79.899 Other long term (current) drug therapy; Z98.890 Other specified postprocedural states
CPT/HCPCS: 36415; 71045; 76870; 80053; 83880; 84484; 85025; 93005; 96372; 99285; G0238; G0378; J1650; G0379

== ENCOUNTER 2021-05-01 10:22 | Day surgery (SDC) | payer MEDICARE ==
[~2021-05-01] VITALS: Ht 175.3 cm; Wt 86.0 kg
[~2021-05-01 10:22] MED LIST changes: +AMLO-186 PO; +HYDROmorphone 2 MG/ML VIAL IVP PRN; +IV RINGERS,LACTATED 1000ML 1,000 ML IV SCH; +MORPHINE SULFATE 2 MG/ML VIAL. IVP PRN; +NAPR220C4 PO; +PROCHLORPERAZINE 10 MG/2 ML VIAL. IVP PRN; +fentaNYL PF VIAL 100 MCG/2 ML VIAL IVP PRN
[2021-05-01] MEDS ORDERED: BUPIVACAINE-EPI 0.5% 30 ML VIAL KIT. ONE ×2 (10:40→10:42)
[2021-05-01] MEDS ORDERED: DEXAMETHASONE SOD PHOS 4 MG/ML VIAL ONE (10:52)
[2021-05-01] MEDS ORDERED: PROPOFOL 10 MG/ML (20ML) VIAL. IV ONE (10:52)
[2021-05-01] MEDS ORDERED: ONDANSETRON PF 4 MG/2 ML VIAL. ONE (10:52)
[2021-05-01] MEDS ORDERED: LIDOCAINE 2% PF 5 ML VIAL. ONE (10:52)
[2021-05-01 11:05] VITALS: BP 168/99
[2021-05-01] MEDS ORDERED: fentaNYL PF VIAL 100 MCG/2 ML VIAL ONE ×2 (11:48→12:23)
[2021-05-01] MEDS ORDERED: ROCURONIUM 50 MG/5 ML VIAL. ONE (12:08)
[2021-05-01] MEDS ORDERED: HYDROmorphone 2 MG/ML VIAL ONE (12:39)
[2021-05-01] MEDS ORDERED: NEOSTIGMINE METHYLSULFATE 5 MG/5 ML SYRINGE. ONE (13:07)
[2021-05-01] MEDS ORDERED: GLYCOPYRROLATE 1 MG/5 ML VIAL. ONE (13:07)
[2021-05-01] MEDS ORDERED: oxyCODONE/APAP 5/325 1 TAB TABLET PO PRN (13:15)
[2021-05-01] MEDS ORDERED: oxyCODONE/APAP 5/325 1 TAB TABLET PO ONE (13:15)
--- NOTE | 2021-05-01 13:20 | PDOC4 ---
Operative Note Operative Note Operative Note: Preoperative Diagnosis: Right inguinal hernia Postoperative Diagnosis: Same Procedure: Right inguinal hernia repair with mesh Surgeon: Tiago Head Of Talent Management: Margie MCNALLY Anesthesia: General EBL: 20 mL Specimen: Hernia sac to pathology Drains: None Complications: None Indication: The patient is a 65-year-old male who is referred with a sizable right inguinal hernia. He was offered surgical repair. The risks of surgery were noted which include bleeding, infection, recurrence, pain, anesthetic risk, potential need for additional surgery procedure. He understands and would like to proceed. Description: The patient was taken to the operating room and placed supine in the operating table. General anesthesia was performed. The right groin was shaved and prepped with ChloraPrep and draped in a standard surgical manner. An incision was made in the right groin with a scalpel. Cautery dissection was carried down to the external bleak aponeurosis. The aponeurosis was opened down to the external ring. The contents of the inguinal canal were digitally mobilized and encircled with a Vanderpool drain. He had a large indirect hernia sac present. The sac was mobilized from the surrounding cord structures which were preserved. Due to the large redundancy of the sac the majority of it was excised and the proximal portion was oversewn with 2-0 Vicryl. The stump was inverted and the defect was filled with an extra-large Phasix mesh plug. The plug was sutured into position with 2-0 Vicryl. The entire inguinal floor was then reinforced with a Prolene keyhole mesh patch. The mesh was sutured into position with 2-0 Vicryl as well. The external oblique was closed over the mesh with 2-0 Vicryl. The subcutaneous tissue was closed with 3-0 Vicryl. The skin was closed with 4-0 Monocryl and infiltrated with half percent Marcaine with epinephrine. Steri-Strips and a sterile dressing were applied. The patient tolerated the procedure well and was sent to the recovery room in stable condition. At the end of the case all counts were correct. SANTIAGO GARZA MD May 01, 2021 13:20
--- NOTE | 2021-05-01 13:22 | DISCH ---
DISCHARGE INSTRUCTIONS Condition on Discharge Condition on Discharge: Stable Activity After Discharge Activity Instructions for Disc: Other, see below (no lifting over 20 lbs X 4 weeks) Diet after Discharge Diet after Discharge: Regular Wound Incision Care Wound/Incision Care: Other, see below (keep dressing clean and dry X 72 hours, may then remove and shower) Follow-Up Follow up with: Dr Garza in 2 weeks in office, call for appointment [phone] SANTIAGO GARZA MD May 01, 2021 13:22
[2021-05-01] MEDS ORDERED: OXYC-325 PO (13:37)
[2021-05-01 14:15] VITALS: BP 150/88
--- NOTE | 2021-05-02 17:43 | PATHOLOGY ---
[facility] Accession Number: [id number] . 01 Material submitted: . hernia - RIGHT INGUINAL HERNIA SAC. Modifiers: right, inguinal . 01 Clinical history: . RIGHT INGUINAL HERNIA INGUINAL HERNIA REPAIR WITH MESH . 02 Diagnosis: Segment of focal mesothelial-lined fibromembranous and fibroadipose tissue, right inguinal hernia repair: - Hernia sac showing focal reactive mesothelial hyperplasia and focal submesothelial reactive fibrosis and chronic inflammation. (JPM:josefa; 05/02/2021) MBR 05/02/2021 1328 Local . 02 Electronically signed: . Christiano Brown MD, Pathologist NPI- [id number] . 01 Gross description: . Received in formalin labeled "Jeffrey Roman and right inguinal hernia sac". Received is a previously opened pink-whitt hernia sac measuring 7.0 x 5.0 x 1.5 cm with a wall thickness ranging from 0.1-0.3 cm. Sectioning reveals congested pink-whitt cut surfaces. The specimen is representatively submitted in cassette A1.([facility]; 05/01/2021) [facility] 05/02/2021 1306 Local . 02 Pathologist provided ICD-10: K40.90 . 02 CPT . 391941 Specimen Comment: A courtesy copy of this report has been sent to [phone] Specimen Comment: Report sent to Performed at: 01 [facility] [address] [id number] MD Ced Rodrigues MD Phone: [phone] Performed at: 02 [facility] [address] [place], [place] [id number] MD Christiano Brown MD Phone: [phone]
== END 2021-05-01 15:10 | disposition home or self-care (01) ==
LOC: SURG 10:22
PROVIDERS: ATTEND Surgery
DX: K40.90 Unilateral inguinal hernia, without obstruction or gangrene, not specified as recurrent (principal); I10 Essential (primary) hypertension; K21.9 Gastro-esophageal reflux disease without esophagitis; M19.90 Unspecified osteoarthritis, unspecified site; Z87.891 Personal history of nicotine dependence; Z79.899 Other long term (current) drug therapy; Z98.890 Other specified postprocedural states
CPT/HCPCS: 49505; A4213; A4364; A4930; C1781; J0690; J1100; J1170; J2405; J2704; J2710; J3010; J3490; 88302; A4223